=== PATIENT | female | born 1980 | race Caucasian/White ===

== ENCOUNTER 2017-01-18 05:04 | Day surgery (SDC) | payer OTHER ==
[2017-01-14 13:17] VITALS: BMI 38.5
--- NOTE | 2017-01-18 08:14 | HP ---
Past Medical History - Primary Care Physician PCP:: Kirby Monteiro - Admission Chief Complaint: pelvic pain. LT ovarian cyst, complex History of Present Illness: 36 yo f with hx of complex RT ovarian cyst and pelvic pain admitted for laparoscopic ovarian cystectomy , possible salpingooophorectomy, risks of procedure discussed History Source: Patient Limitations to Obtaining History: No Limitations - Past Surgical History Hx Myomectomy: No Hx Transabdominal Cerclage: No Additional Surgical History: essure procedure - Smoking History Smoking history: Never smoked Have you smoked in the past 12 months: No - Alcohol/Substance Use Hx Alcohol Use: No History of Substance Use: reports: None - Social History History of Recent Travel: No Home Medications - Allergies Allergies/Adverse Reactions: Allergies Allergy/AdvReac Type Severity Reaction Status Date / Time No Known Allergies Allergy Verified 01/14/17 13:19 - Home Medications Home Medications: Ambulatory Orders Ibuprofen [Motrin -] 800 mg PO Q8H PRN 01/14/17 Hydroxyzine HCl 10 mg PO PRN PRN 01/18/17 Naproxen [Naprosyn -] 375 mg PO PRN 01/18/17 Review of Systems - Review of Systems Constitutional: reports: No Symptoms Eyes: reports: No Symptoms HENT: reports: No Symptoms Neck: reports: No Symptoms Cardiovascular: reports: No Symptoms Respiratory: reports: No Symptoms Gastrointestinal: reports: Abdominal Pain Genitourinary: reports: No Symptoms Breasts: reports: No Symptoms Reported Musculoskeletal: reports: No Symptoms Integumentary: reports: No Symptoms Neurological: reports: No Symptoms Endocrine: reports: No Symptoms Hematology/Lymphatic: reports: No Symptoms Psychiatric: reports: No Symptoms Physical Exam-BREAKFAST ATTENDANT Constitutional: Yes: Well Nourished, No Distress, Calm Eyes: Yes: WNL, Conjunctiva Clear, EOM Intact HENT: Yes: WNL, Atraumatic, Normocephalic Neck: Yes: WNL, Supple, Trachea Midline Cardiovascular: Yes: WNL, Regular Rate and Rhythm Respiratory: Yes: WNL, Regular, CTA Bilaterally Gastrointestinal: Yes: WNL ...Rectal Exam: Yes: WNL Renal/: Yes: WNL External Genitalia: Yes: Normal Vaginal Exam: Yes: Normal Cervix: Yes: Normal Uterus: Yes: Normal Adnexa: Not Palpable: Left, Right Breast(s): Yes: WNL Musculoskeletal: Yes: WNL Extremities: Yes: WNL Integumentary: Yes: WNL Neurological: Yes: WNL, Alert, Oriented ...Motor Strength: WNL Psychiatric: Yes: WNL, Alert, Oriented Problem List - Problem (1) Ovarian cyst Code(s): N83.209 - UNSPECIFIED OVARIAN CYST, UNSPECIFIED SIDE (2) Pelvic pain Code(s): R10.2 - PELVIC AND PERINEAL PAIN Assessment/Plan laparoscopy ovarian cystectomy
[2017-01-18] MEDS ORDERED: PROPOFOL 20 ML ONE ×3 (10:15→11:38)
[2017-01-18] MEDS ORDERED: LIDOCAINE HCL/PF 2% SDV 5ML VIAL ONE (10:15)
[2017-01-18] MEDS ORDERED: MIDAZOLAM HCL 2 MG/2 ML SINGLE DOSE VIAL ONE (10:16)
[2017-01-18] MEDS ORDERED: ROCURONIUM BROMIDE 50 MG/5 ML VIAL ONE (10:16)
[2017-01-18] MEDS ORDERED: ceFAZolin SODIUM 1 GM VIAL ONE (10:47)
[2017-01-18] MEDS ORDERED: ceFAZolin SODIUM 1 GM VIAL IVPB ONE (10:49)
[2017-01-18] MEDS ORDERED: DEXAMETHASONE SOD PHOSPHATE 4 MG/1 ML VIAL ONE (11:05)
[2017-01-18] MEDS ORDERED: NEOSTIGMINE METHYLSULFATE 0.5 MG/ML - 10 ML MDV ONE (11:26)
[2017-01-18] MEDS ORDERED: GLYCOPYRROLATE 0.2 MG/1 ML VIAL ONE (11:26)
[2017-01-18] MEDS ORDERED: KETOROLAC TROMETHAMINE 30 MG/1 ML VIAL ONE (11:29)
[2017-01-18] MEDS ORDERED: oxyCODONE HCL 5 MG TABLET PO PRN ×2 (11:56→12:16)
[2017-01-18] MEDS ORDERED: ONDANSETRON 4 MG/2 ML VIAL IVPUSH PRN (11:56)
[2017-01-18] MEDS ORDERED: ACETAMINOPHEN 1000 MG/100 ML VIAL (NON FORMULARY) IVPB PRN (11:57)
[2017-01-18] MEDS ORDERED: LACTATED RINGERS SOLUTION 1,000 ML IV SCH (12:00)
[2017-01-18] MEDS ORDERED: ONDANSETRON 4 MG/2 ML VIAL IVPB PRN (12:16)
[2017-01-18] MEDS ORDERED: IBUPROFEN 800 MG/8 ML IJ IVPB PRN (12:16)
[2017-01-18] MEDS ORDERED: IBUPROFEN 600 MG TABLET (FP) PO PRN (12:16)
[2017-01-18] MEDS ORDERED: ELECTROLYTE-148 SOLN 1,000 ML IV SCH (12:30)
[2017-01-18 13:37] VITALS: TEMP 98.2
[2017-01-18] MEDS ORDERED: oxyCODONE HCL 5 MG TABLET ONE (13:47)
[2017-01-18 14:49] VITALS: BP 133/69; PULSE 65
--- NOTE | 2017-01-19 06:59 | OP ---
DATE OF OPERATION: 01/18/2017 PREOPERATIVE DIAGNOSIS: Pelvic pain, right ovarian complex cyst. POSTOPERATIVE DIAGNOSIS: Pelvic pain, right ovarian complex cyst. PROCEDURE: Laparoscopic right ovarian cystectomy. SURGEON: Kirby Nguyen MD GAS FURNACE INSTALLER: Belkys Bello MD ESTIMATED BLOOD LOSS: 25 mL. OPERATIVE REPORT: The patient was taken to the operating room, had adequate general anesthesia, in dorsal lithotomy position, examination under anesthesia revealed external genitalia to be normal, vagina was normal, cervix was clean, no lesion, uterus normal-sized, adnexa no masses were palpable. Then, with a weighted speculum in the vagina, anterior lip of the cervix was grasped with a single-tooth tenaculum, and then, Hulka was introduced into the uterine cavity for manipulation. Swenson was inserted, and patient was prepped and draped in dorsal lithotomy position for laparoscopy. Small infraumbilical skin incision was made. Veress needle was introduced. Pneumoperitoneum was established. A 5-mm trocar was introduced. Then, the scope was introduced. Then, under direct vision, a 5-mm trocar was introduced through the right hypergastric area, and a 10-mm through the left hypergastric. Visualization of the pelvic organ showed upper abdomen to be normal, uterus was normal sized. Both tubes were normal. The right ovary was enlarged with an approximately 4-cm cyst with a normal capsule. No excrescence was seen and no pelvic adhesions. The left ovary appeared to be cystic, but normal. Cul-se-sac was free of adhesions. No other abnormality was found. Then, right ovary was grasped with a grasper, and with a LigaSure, the right ovarian cyst was excised, and then, it was removed through an EndoCatch. Pelvic cavity at that time was irrigated. No active bleeding was seen. Then, the 10-mm trocar port was closed with interrupted suture of 0 Vicryl. Then, subcutaneous fat with interrupted suture of 2-0 Vicryl, and skin was closed with 3-0 Biosyn interrupted sutures. Then, instruments were withdrawn. Abdomen was emptied of all the gases. Umbilical area was closed with 0 Vicryl suture and then, with 3-0 Biosyn for the skin interrupted suture. The right epigastric area was closed with interrupted suture of 0 Biosyn. Patient tolerated the procedure well, left the OR in good condition. KIRBY NGUYEN M.D. [id number]
--- NOTE | 2017-01-20 09:15 | PATH ---
Surgical Pathology Report Patient Name: FATOUMATA HIGGINS [facility]. Rec. #: [id number] /Age/Gender: 1980 (Age: 36) / F Account: [id number] Location: [facility] Taken: 01/18/2017 Received: 01/18/2017 Reported: 01/20/2017 Physicians: Kirby Monteiro M.D. Specimen(s) Received RIGHT OVARIAN CYST Clinical History Ovarian cyst Final Diagnosis RIGHT OVARIAN CYST, EXCISION: HEMORRHAGIC LUTEAL CYST. Electronically Signed Jacob Cunningham M.D. Gross Description Received in formalin labeled "right ovarian cyst," is a 2.7 x 2.0 x 1.5 cm focally disrupted pink-rodriguez portion of ovary with attached hemorrhage. Sectioning reveals a focally disrupted hemorrhagic cyst. The specimen is serially sectioned and entirely submitted in 4 cassettes. /01/18/2017 saudi/01/18/2017
== END 2017-01-18 14:30 | disposition home or self-care (01) ==
LOC: JASU-SURG 05:04
PROVIDERS: ATTEND Obstetrics & Gynecology
PROC: 0UB04ZZ Excision of Right Ovary, Percutaneous Endoscopic Approach (ICD-10-PCS; principal; 2017-01-18 10:00)
DX: N83.201 Unspecified ovarian cyst, right side (principal)
CPT/HCPCS: 84703; 88304-TC; 94760

== ENCOUNTER 2021-04-06 04:43 | Day surgery (SDC) | payer OTHER ==
[2021-04-02 14:07] VITALS: BMI 39.0
[~2021-04-06 04:43] MED LIST: BUPIVACAINE HCL/PF 0.5% (5 MG/ML) 30 ML VIAL IJ ONE
[2021-04-06 09:48] LABS: BASO % 0.8 % (0-2.0); EOS % 1.3 % (0-4.5); HEMATOCRIT 34.2 % (32.4-45.2); HEMOGLOBIN 11.6 GM/dL (10.7-15.3); LYMPH % 35.3 % (8-40); MCH 28.4 pg (25.7-33.7); MEAN CELL VOLUME 83.6 fl (80-96); MEAN PLT VOLUME 9.2 fl (7.5-11.1); NEUT % 56.6 % (42.8-82.8); PLATELET COUNT 367 10^3/uL (134-434); RBC 4.09 M/mm3 (3.60-5.2); RDW 13.9 % (11.6-15.6); WHITE BLOOD COUNT 6.8 K/mm3 (4.0-10.0)
[2021-04-06 09:52] LABS: INR 1.23 (0.83-1.09); PROTHROMBIN TIME (PATIENT) 15.2 SEC (9.7-13.0)
[2021-04-06 10:07] LABS: CALCIUM 8.7 mg/dL (8.5-10.1)
[2021-04-06 10:08] LABS: ALBUMIN 3.2 g/dl (3.4-5.0); BLOOD UREA NITROGEN 8.6 mg/dL (7-18)
[2021-04-06 10:11] LABS: CREATININE 0.6 mg/dL (0.55-1.3)
[2021-04-06 10:11] LABS: URINE APPEARANCE CLEAR; URINE BILIRUBIN NEGATIVE (NEGATIVE); URINE COLOR YELLOW; URINE GLUCOSE (UA) NEGATIVE (NEGATIVE); URINE KETONE NEGATIVE (NEGATIVE); URINE LEUK ESTERASE NEGATIVE (NEGATIVE); URINE NITRITE NEGATIVE (NEGATIVE); URINE PROTEIN NEGATIVE (NEGATIVE)
[2021-04-06 10:12] LABS: BILIRUBIN,TOTAL 0.6 mg/dL (0.2-1); TOT PROT 7.8 g/dl (6.4-8.2)
[2021-04-06 10:14] LABS: HCG,QUALITATIVE URINE Negative
[2021-04-06] MEDS ORDERED: BUPIVACAINE HCL/PF 0.5% (5MG/ML) 10 ML VIAL ONE (11:57)
[2021-04-06] MEDS ORDERED: MIDAZOLAM HCL 2 MG/2 ML SINGLE DOSE VIAL ONE (13:12)
[2021-04-06] MEDS ORDERED: PROPOFOL 20 ML ONE ×2 (13:12→13:59)
[2021-04-06] MEDS ORDERED: fentaNYL CITRATE 250 MCG/5 ML VIAL ONE (13:12)
[2021-04-06] MEDS ORDERED: ROCURONIUM BROMIDE 50 MG/5 ML SYRINGE ONE (13:24)
[2021-04-06] MEDS ORDERED: ceFAZolin SODIUM 1 GM VIAL ONE ×2 (13:35)
[2021-04-06] MEDS ORDERED: NEOSTIGMINE METHYLSULFATE 0.5 MG/ML - 10 ML MDV ONE (13:47)
[2021-04-06] MEDS ORDERED: DEXAMETHASONE SOD PHOSPHATE 4 MG/1 ML VIAL ONE (13:47)
[2021-04-06] MEDS ORDERED: GLYCOPYRROLATE 0.2 MG/1 ML VIAL ONE ×2 (13:47→13:49)
[2021-04-06] MEDS ORDERED: KETOROLAC TROMETHAMINE 30 MG/1 ML VIAL ONE (13:47)
[2021-04-06] MEDS ORDERED: BUPIVACAINE HCL/PF 0.5% (5 MG/ML) 30 ML VIAL IJ ONE (14:15)
[2021-04-06] MEDS ORDERED: ONDANSETRON 4 MG/2 ML VIAL IVPUSH PRN (14:29)
[2021-04-06] MEDS ORDERED: PROMETHAZINE HCL 25 MG/1 ML VIAL IVPB PRN (14:29)
[2021-04-06] MEDS ORDERED: oxyCODONE HCL 5 MG TABLET PO PRN (14:29)
[2021-04-06] MEDS ORDERED: LACTATED RINGERS SOLUTION 1,000 ML IV SCH (14:30)
[2021-04-06] MEDS ORDERED: ceFAZolin SODIUM 1 GM VIAL IVPB ONE (14:40)
[2021-04-06] MEDS ORDERED: ONDANSETRON 4 MG/2 ML VIAL ONE (15:41)
[2021-04-06 18:37] VITALS: BP 125/85; PULSE 89; TEMP 98.8
== END 2021-04-06 17:45 | disposition home or self-care (01) ==
LOC: JASU-SURG 04:43
PROVIDERS: ATTEND Surgery
PROC: 0FT44ZZ Resection of Gallbladder, Percutaneous Endoscopic Approach (ICD-10-PCS; principal; 2021-04-06 12:00)
DX: K80.10 Calculus of gallbladder with chronic cholecystitis without obstruction (principal)
CPT/HCPCS: 36415; 80053; 81003; 84703; 85025; 85610; 88304-TC; 94760; C9803; U0003; U0005

== ENCOUNTER 2021-04-07 00:03 | Emergency (ER) | payer OTHER ==
[2021-04-07 00:22] VITALS: PULSE 93; TEMP 98.3; BMI 36.1
[2021-04-07] MEDS ORDERED: SODIUM CHLORIDE 1,000 ML IV STA (00:45)
[2021-04-07] MEDS ORDERED: ONDANSETRON 4 MG/2 ML VIAL IVPB ONE (00:51)
[2021-04-07] MEDS ORDERED: morphine CARPU-JECT 4 MG/1 ML DISP.SYRIN IVPUSH ONE (00:52)
[2021-04-07] MEDS ORDERED: ONDANSETRON 4 MG/2 ML VIAL ONE (00:58)
[2021-04-07] MEDS ORDERED: MORPHINE SULFATE 2 MG/ML VIAL ONE (00:59)
[2021-04-07 02:23] VITALS: BP 124/71
== END 2021-04-07 02:23 | disposition home or self-care (01) ==
LOC: JER 00:03
PROC: 3E033NZ Introduction of Analgesics, Hypnotics, Sedatives into Peripheral Vein, Percutaneous Approach (ICD-10-PCS; principal; 2021-04-07)
PROC: 3E033GC Introduction of Other Therapeutic Substance into Peripheral Vein, Percutaneous Approach (ICD-10-PCS; 2021-04-07)
PROC: 3E0337Z Introduction of Electrolytic and Water Balance Substance into Peripheral Vein, Percutaneous Approach (ICD-10-PCS; 2021-04-07)
DX: R11.0 Nausea (principal); R52 Pain, unspecified
CPT/HCPCS: 96361; 96374; 96375; 99284-25

== ENCOUNTER 2021-04-23 23:06 | Emergency (ER) | payer OTHER ==
[2021-04-23 23:38] VITALS: BP 111/74; PULSE 85; TEMP 98.4; BMI 35.2
[2021-04-24] MEDS ORDERED: MECLIZINE HCL 25 MG TABLET (FP) PO ONE (00:52)
[2021-04-24] MEDS ORDERED: METOCLOPRAMIDE HCL INJECTION 10 MG/2 ML VIAL IVPB ONE (00:52)
[2021-04-24] MEDS ORDERED: SODIUM CHLORIDE 1,000 ML IV STA (00:52)
[2021-04-24] MEDS ORDERED: MECLIZINE HCL 25 MG TABLET (FP) ONE (00:59)
[2021-04-24] MEDS ORDERED: METOCLOPRAMIDE HCL INJECTION 10 MG/2 ML VIAL ONE (00:59)
== END 2021-04-24 02:42 | disposition home or self-care (01) ==
LOC: JER 23:06
PROC: 3E033NZ Introduction of Analgesics, Hypnotics, Sedatives into Peripheral Vein, Percutaneous Approach (ICD-10-PCS; principal; 2021-04-24)
PROC: 3E033GC Introduction of Other Therapeutic Substance into Peripheral Vein, Percutaneous Approach (ICD-10-PCS; 2021-04-24)
PROC: 3E033GC Introduction of Other Therapeutic Substance into Peripheral Vein, Percutaneous Approach (ICD-10-PCS; 2021-04-24)
DX: R42 Dizziness and giddiness (principal)
CPT/HCPCS: 99284-25